=== PATIENT | male | born 1945 | race Caucasian/White ===

== ENCOUNTER → 2023-08-20 06:34 | Day surgery (SDC) | payer MEDICARE, BC, SELFPAY | LOC: GI 06:34 | PROVIDERS: ATTENDING PHYSICIAN Internal Medicine Gastroenterology; FAMILY PHYSICIAN Family Medicine | DX: Z12.11 Encounter for screening for malignant neoplasm of colon (principal); D12.0 Benign neoplasm of cecum; D12.2 Benign neoplasm of ascending colon; K63.5 Polyp of colon; K55.20 Angiodysplasia of colon without hemorrhage; K57.30 Diverticulosis of large intestine without perforation or abscess without bleeding; K64.0 First degree hemorrhoids; Z86.010 Personal history of colon polyps; Z98.890 Other specified postprocedural states | CPT/HCPCS: 45385; 45380; 88305 ==

== ENCOUNTER → 2023-11-12 13:59 | Outpatient (REF) | payer MEDICARE, BC, SELFPAY | LOC: RCS 13:59 | PROVIDERS: ATTENDING PHYSICIAN Internal Medicine Cardiovascular Disease; FAMILY PHYSICIAN Family Medicine | DX: I77.810 Thoracic aortic ectasia (principal) | CPT/HCPCS: 93306 ==

== ENCOUNTER → 2024-02-25 07:39 | Outpatient (REF) | payer MEDICARE, BC, SELFPAY | LOC: RAD 07:39 | PROVIDERS: ATTENDING PHYSICIAN Family Medicine | DX: K74.02 Hepatic fibrosis, advanced fibrosis (principal) | CPT/HCPCS: 76700 ==

== ENCOUNTER → 2024-06-06 09:31 | Day surgery (SDC) | payer MEDICARE, BC, SELFPAY | LOC: SDSPAT 09:31 | PROVIDERS: ATTENDING PHYSICIAN Surgery; FAMILY PHYSICIAN Family Medicine | DX: Z01.810 Encounter for preprocedural cardiovascular examination (principal); Z01.812 Encounter for preprocedural laboratory examination; I49.8 Other specified cardiac arrhythmias | CPT/HCPCS: 93005; 36415 ==

== ENCOUNTER 2024-06-20 06:12 | Day surgery (SDC) | payer MEDICARE, BC, SELFPAY ==
[2024-06-06 10:04] VITALS: BMI 23.1
[2024-06-20] VITALS (8 sets, daily range): BP systolic 105–134; BP diastolic 57–77; BMI 23.1
[2024-06-20] MEDS: NORMOSOL-R/PLASMALYTE-A 1000 IV (06:29)
[2024-06-20] MEDS: TYLENOL 1000 MG PO (06:29)
--- NOTE | 2024-06-20 09:55 | OR.RPT ---
Operative Report
Operative Report
Primary Surgeon: Kinjal
Assisting: Tello MEJIA
Pre-op Diagnosis: Bilateral inguinal hernias
Post-op Diagnosis: Same
Procedure Performed: Robot assisted laparoscopic repair of bilateral inguinal hernias
Anesthesia Type: GETA
Specimen / Cultures: None
Estimated Blood Loss: 10cc
Complications: None immediate
Operative Findings: Mariscal placed up front and removed at conclusion; moderate scarring around the vessels and dense scarring in space of Retzius; B/L XL MID 3D Max
Date of surgery: 06/20/24
Indications:� This 78M developed symptomatic bilateral inguinal hernias. Robot assisted laparoscopic repair was planned.
Description of procedure:� The patient was taken to the operating room and positioned into supine position. The patient�s abdomen was prepped and draped in standard sterile fashion. A time-out was completed verifying correct patient, procedure,
site, positioning, and implants and special equipment prior to beginning this procedure.
The groin hernias were manually reduced. A stab incision was made in the left upper quadrant, a Veress needle was inserted and proper position was confirmed by aspiration and saline drop test. Following this, pneumoperitoneum was created with
insufflation of carbon dioxide to 12 mmHg. Then a 8mm robotic trocar was inserted above and to the left of the umbilicus. A laparoscope was inserted and the area of initial trocar entry and Veress needle placement were both inspected and no injuries
were found. Two 8mm trocars were then placed lateral to the rectus sheath under direct visualization.
Both inguinal regions were inspected and the median umbilical ligament, medial umbilical ligament, and lateral umbilical fold were identified. Attention was turned to the right groin. Filmy adhesions from descending colon to abdominal wall were
taken down with cold annie. The peritoneum was incised transversely above the defect and a flap was developed in the caudad direction. Hieu�s ligament was identified ultimately dissected to its junction with the iliac vein and the space of
Retzius was developed bluntly.�Moderate scarring around the vessels and more dense scar within the space of Retzius. The dissection was continued inferiorly to the iliopubic tract, with care taken to avoid injury to the femoral branch of the
genitofemoral nerve and the lateral femoral cutaneous nerve. The cord structures were parietalized.
The direct space was inspected and no hernia defect was identified. The femoral space was inspected no defect was identified.� The indirect space was inspected and a hernia was identified and reduced by gentle traction. The canal was inspected and
no cord lipoma was identified.
Attention was turned to the left groin and the above process was repeated. An indirect hernia was identified and reduced by gentle traction. The canal was inspected and non cord lipoma was identified.
Extra large left and right MID 3D max mesh was passed through a trocar. The mesh was placed into the preperitoneal space and moved into position to lay flat and completely cover the direct, indirect, and femoral spaces with overlap at the midline.
The mesh was secured into place using 2-0 vicryl suture to Hieu�s ligament medially and laterally. Care was taken to avoid the inferolateral triangles containing the iliac vessels and genital nerves. The peritoneal flap was closed over the mesh
and secured with 2-0 monocryl stratafix suture in similar positions of safety. A 14g angiocath was used to decompress the preperitoneal space revealing good seal and all mesh in good position without folding or curling.
After ensuring adequate hemostasis, the trocars were removed and the pneumoperitoneum allowed to escape. The trocar incisions were closed at the skin level using 4-0 monocryl and topical skin adhesive. All counts were correct and the patient
tolerated the procedure well and was taken to the postanesthesia care unit in stable condition.
The assistance of Tello MEJIA was required due to the complexity of the procedure. During the procedure she assisted with retraction, and closure of the wound.
== END 2024-06-20 11:30 | disposition home or self-care (01) ==
LOC: SDS 06:12
PROVIDERS: ATTENDING PHYSICIAN Surgery
DX: K40.20 Bilateral inguinal hernia, without obstruction or gangrene, not specified as recurrent (principal)
CPT/HCPCS: 49650; C1781